=== PATIENT | female | born 1980 | race Caucasian/White ===

== ENCOUNTER → 2024-12-02 | Outpatient (CLI) | payer OTHER, SELFPAY ==
[2024-12-09 11:07] LABS: HPV APTIMA, High Risk Negative (Negative)
== END | disposition home or self-care (01) ==
PROVIDERS: Visit Provider Nurse Practitioner Family
DX: Z12.4 Encounter for screening for malignant neoplasm of cervix (principal)
CPT/HCPCS: 87624; 88175; G0145

== ENCOUNTER → 2024-12-10 | Outpatient (CLI) | payer OTHER, SELFPAY ==
--- NOTE | 2024-12-10 17:41 | US_ITS ---
PROCEDURE: Pelvic ultrasound, transabdominal and transvaginal. REASON FOR EXAM: History of ovarian cysts. COMPARISON: No prior studies available. FINDINGS Included portions of the urinary bladder are unremarkable. The uterus is anteverted measuring 9.9 x 5.7 x 4.7 cm. No discrete uterine myometrial or cervical mass demonstrated. The right ovary is 2.0 x 2.0 x 1.7 cm. The left ovary is 2.8 x 2.7 x 1.9 cm. There is blood flow in both ovaries on Doppler evaluation. No significant adnexal lesion. No free pelvic fluid. The endometrium measures 4 mm in thickness. A few tiny nabothian cysts are present. Slightly hyperechoic 1.3 cm structure of the uterine myometrium image 139, suspicious for a tiny fibroid. US/Pelvic w/ Transvaginal IMPRESSION: Possible 1.3 cm uterine fibroid. Otherwise, unremarkable pelvic ultrasound for age. Reading Location: [facility]
== END | disposition home or self-care (01) ==
PROVIDERS: Referring Provider Nurse Practitioner Family; Visit Provider Nurse Practitioner Family
DX: R10.2 Pelvic and perineal pain (principal)
CPT/HCPCS: 76830; 76856

== ENCOUNTER → 2024-12-15 | Outpatient (CLI) | payer OTHER, SELFPAY ==
--- NOTE | 2024-12-15 16:51 | BI_ITS ---
PROCEDURE: SCRN MAMM (CAD)W/DEEPAK BILAT REASON FOR EXAM: F, Age 44 y/o , F, Age 44 y/o , no family history. Annual mammographic examination. TECHNIQUE: Bilateral screening digital breast tomosynthesis with 2D and 3D images. Computer aided detection. COMPARISON: Baseline examination. FINDINGS: The breasts are heterogeneously dense which may obscure small masses. Small benign-appearing bilateral axillary lymph nodes. No suspicious masses, areas of developing architectural distortion, or suspicious calcifications. BI/SCRN MAMM (CAD)W/DEEPAK BILAT IMPRESSION: BI-RADS 2: BENIGN. RECOMMEND ANNUAL MAMMOGRAPHIC SCREENING. Follow-up code: Routine Follow-up The patient will be notified of the results by letter. Reading Location: [place] [id number]
== END | disposition home or self-care (01) ==
LOC: OPBI 12-16 07:12
PROVIDERS: Referring Provider Nurse Practitioner Family; Visit Provider Nurse Practitioner Family
DX: Z12.31 Encounter for screening mammogram for malignant neoplasm of breast (principal)
CPT/HCPCS: 77063; 77067